=== PATIENT | female | born 1945 | race African-American/Black ===

== ENCOUNTER 2017-01-24 18:22 | Emergency (ER) | payer OTHER, MEDICARE ==
[~2017-01-24] VITALS: Ht 160 cm; Wt 85.0 kg
[~2017-01-24 18:22] MED LIST: ALLO100T PO; GLIM2TAB PO; LISI40TA PO; LORA-392 PO; NIFE1TAB85 PO; SODI650T PO; VITATAB56 PO
[2017-01-24] MEDS ORDERED: IOHEXOL 350 MG/ML 10 ML VIAL (for RAD DIAG) IVCONTRAST ONE (18:23)
[2017-01-24 18:38] VITALS: BP 189/89; PULSE 71; RESP 26; TEMP 98.9; O2SAT 96
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
[2017-01-24 18:43] VITALS: BP 189/86; PULSE 64; RESP 26; TEMP 98.9; O2SAT 95
[2017-01-24 19:00] VITALS: BP 178/82; PULSE 98; RESP 18; O2SAT 98
[2017-01-24] MEDS ORDERED: MORPHINE SULFATE 4 MG/ML INJ IV ONE (19:00)
[2017-01-24] MEDS ORDERED: ONDANSETRON HCL 4 MG/2 ML VIAL IVP ONE (19:00)
[2017-01-24] MEDS ORDERED: SODIUM CHLORIDE 0.9% FLUSH 10 ML FLUSH IVF PRN (19:00)
[2017-01-24 19:30] LABS: AUTOMATED NEUTROPHIL # 3.1 TH/MM3 (1.8-7.7); BASOPHIL # 0.1 TH/MM3 (0-0.2); EOSINOPHIL # 0.1 TH/MM3 (0-0.4); EOSINOPHIL % 1.8 % (0.0-4.0); HEMATOCRIT 44.6 % (35.0-46.0); LYMPH % 33.4 % (9.0-44.0); LYMPHOCYTE # 1.9 TH/MM3 (1.0-4.8); MEAN CORPUSCULAR HEMOGLOBIN 29.6 PG (27.0-34.0); MEAN CORPUSCULAR HGB CONC 32.6 % (32.0-36.0); MONO % 8.6 % (0.0-8.0); NEUT % 55.2 % (16.0-70.0); PLATELET COUNT 97 TH/MM3 (150-450); RED BLOOD COUNT 4.91 MIL/MM3 (4.00-5.30); RED CELL DISTRIBUTION WIDTH 14.3 % (11.6-17.2); WHITE BLOOD COUNT 5.7 TH/MM3 (4.0-11.0)
[2017-01-24 19:34] LABS: BACTERIA, URINE RARE /hpf; BLOOD, URINE NEG (NEG); COMMENT (UR) CULT NOT INDICATED; CULTURE IF INDICATED CULT NOT INDICATED; GLUCOSE,URINE NEG (NEG); KETONE, URINE NEG (NEG); NITRITE,URINE NEG (NEG); SQUAMOUS EPITHELIAL CELL URINE 2 /hpf (0-5); URINE COLOR LIGHT-YELLOW (YELLW/STRAW)
[2017-01-24 19:34] LABS: HEMO FLAGS AUTO DIFF
[2017-01-24 19:45] LABS: BICARBONATE 25.6 MEQ/L (21.0-32.0)
[2017-01-24 19:53] LABS: APTT (PATIENT) 26.6 SEC (24.3-30.1); INTERNATIONAL NORMALIZED RATIO 0.9 RATIO; PROTHROMBIN TIME - PATIENT 10.4 SEC (9.8-11.6)
[2017-01-24 20:08] LABS: BASOPHILS 2 % (0-2); NEUTROPHIL # MANUAL DIFF 3.4 TH/MM3 (1.8-7.7); POLYS (SEG NEUTROPHILS) 59 % (16-70); WBC DIFF SAMPLE 100
[2017-01-24 20:10] LABS: OVALOCYTES 1+ (NORMAL); PLATELET ESTIMATE SMEAR LOW (NORMAL); PLATELET MORPHOLOGY ENLARGED (NORMAL); SCAN/DIFF FINAL DIFF MANUAL
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
[2017-01-24] MEDS ORDERED: HYDR-3516 PO (22:16)
[2017-01-28] MEDS ORDERED: DEXA4VIA IM (16:06)
[2017-01-28] MEDS ORDERED: CYCL5TAB PO (16:06)
[2017-02-25] MEDS ORDERED: LANCETS1 MI1 (09:34)
[2017-02-25] MEDS ORDERED: GLUCTES12 (09:34)
[2017-02-25] MEDS ORDERED: GLUCKIT15 (09:34)
[2017-02-25] MEDS ORDERED: SODI650T PO (20:46)
== END 2017-01-24 22:37 | disposition home or self-care (01) ==
LOC: NEPD 18:22
DX: S20.212A Contusion of left front wall of thorax, initial encounter (principal); S13.4XXA Sprain of ligaments of cervical spine, initial encounter; N28.9 Disorder of kidney and ureter, unspecified; M54.6 Pain in thoracic spine; M54.5 Low back pain; I10 Essential (primary) hypertension; E78.00 Pure hypercholesterolemia, unspecified; V89.2XXA Person injured in unspecified motor-vehicle accident, traffic, initial encounter; Z87.39 Personal history of other diseases of the musculoskeletal system and connective tissue; Z86.2 Personal history of diseases of the blood and blood-forming organs and certain disorders involving the immune mechanism; Z86.79 Personal history of other diseases of the circulatory system; Z86.69 Personal history of other diseases of the nervous system and sense organs
CPT/HCPCS: 70450; 71260; 72125; 74177; 80048; 81001; 85007; 85027; 85610; 85730; 86850; 86900; 86901; 96374; 96375; 99285; J2270; J2405; Q9967